=== PATIENT | female | born 1990 | race Caucasian/White ===

== ENCOUNTER → 2016-09-03 | Emergency (ER) | payer SELFPAY | END | disposition left against medical advice (07) | LOC: ED 19:36 | DX: Z53.9 Procedure and treatment not carried out, unspecified reason (principal) | CPT/HCPCS: 99281 ==

== ENCOUNTER 2017-04-20 07:00 | Emergency (ER) | payer OTHER ==
--- NOTE | 2017-04-20 07:38 | ERPHSYRPT ---
- History of Present Illness Time Seen by Provider: 04/20/17 07:24 Historian: patient Exam Limitations: no limitations Patient Subjective Stated Complaint: pt reports abd pain with cramping for one week. states she tried to have a bowel movement this morning which produced a small amount of dark stool. also reports yellow vomit. reports decreased appetite. Triage Nursing Assessment: pt is aox3, pupils perrl, resps easy and non labored , abd soft and tender with palpation, pain that is non radiating is localized to the RLQ bowel sounds present and normoactivex4, skin is pink warm and dry, pt afebrile. Physician History: The patient is a 26-year-old spontaneous 2 female with a last menstrual period of one month ago complaining of right lower quadrant abdominal pain for one week. One week ago the pain woke her up from her sleep. She states the pain is a cramping type pain. This morning the pain woke her up out of a sleep at 5 AM. She vomited some yellow bile and had a small "black" bowel movement. She denies fever or chills. She is sexually active without protection. She states she should have started her menstrual period yesterday but did not. She has not taken a home test. She's had no abdominal surgeries. Her past medical history significant for drug abuse. Timing/Duration: week(s) (1) Activities at Onset: none Quality: cramping Abdominal Pain Onset Location: RLQ Severity of Pain-Max: moderate Severity of Pain-Current: moderate Modifying Factors: Improves With: nothing Associated Symptoms: nausea, vomiting Previous symptoms: no prior history Allergies/Adverse Reactions: adhesive Allergy (Verified 04/20/17 07:20) Home Medications: No Home Meds [No Home Meds] 1 [facility] UD 06/23/14 [History] Hx Tetanus, Diphtheria Vaccination/Date Given: No Hx Influenza Vaccination/Date Given: No Hx Pneumococcal Vaccination/Date Given: No Immunizations Up to Date: Yes - Review of Systems Constitutional: No Fever, No Chills Eyes: No Symptoms Ears, Nose, & Throat: No Symptoms Respiratory: No Cough, No Dyspnea Cardiac: No Chest Pain, No Edema, No Syncope Abdominal/Gastrointestinal: Abdominal Pain, Nausea, Vomiting, Melena Genitourinary Symptoms: No Dysuria Musculoskeletal: No Back Pain, No Neck Pain Skin: No Rash Neurological: No Dizziness, No Focal Weakness, No Sensory Changes Psychological: No Symptoms Endocrine: No Symptoms Hematologic/Lymphatic: No Symptoms Immunological/Allergic: No Symptoms All Other Systems: Reviewed and Negative - Past Medical History Pertinent Past Medical History: No Neurological History: Stroke ENT History: No Pertinent History Cardiac History: No Pertinent History Respiratory History: No Pertinent History Endocrine Medical History: No Pertinent History Musculoskeletal History: No Pertinent History GI Medical History: No Pertinent History History: No Pertinent History Psycho-Social History: Depression Female Reproductive Disorders: No Pertinent History - Past Surgical History Past Surgical History: Yes Neuro Surgical History: No Pertinent History Cardiac: No Pertinent History Respiratory: No Pertinent History Gastrointestinal: No Pertinent History Genitourinary: No Pertinent History Musculoskeletal: No Pertinent History, Amputation Female Surgical History: No Pertinent History, Dilation & Curettage Other Surgical History: eye surg left. 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 "from smoking fake weed"-assoc memory trouble - Social History Smoking Status: Current every day smoker How long have you smoked: 10 Exposure to second hand smoke: Yes Drug Use: marijuana Patient Lives Alone: Yes - Female History Hx Last Menstrual Period: 03/20/17 Hx Now: Yes - Nursing Vital Signs Nursing Vital Signs: Initial Vital Signs Temperature 98.1 F 04/20/17 07:09 Pulse Rate 85 04/20/17 07:09 Respiratory Rate 20 04/20/17 07:09 Blood Pressure 119/86 04/20/17 07:09 O2 Sat by Pulse Oximetry 99 04/20/17 07:09 Pain Scale Pain Intensity 0 - Physical Exam General Appearance: mild distress Eye Exam: PERRL/EOMI, eyes nml inspection Ears, Nose, Throat Exam: normal ENT inspection, pharynx normal, moist mucous membranes Neck Exam: normal inspection, non-tender, supple, full range of motion Respiratory Exam: normal breath sounds, lungs clear, No respiratory distress Cardiovascular Exam: regular rate/rhythm, normal heart sounds Gastrointestinal/Abdomen Exam: tenderness (RLQ), guarding, rebound Pelvic Exam: normal external exam, other (small amount of blood coming from cervical os.), No adnexal tenderness, No cervical motion tenderness Rectal Exam: normal exam (nurse performs rectal exam at pt's request. Exam normal. No feces seen on glove or felt in rectum.), No black stool, No blood Back Exam: normal inspection, normal range of motion, No CVA tenderness, No vertebral tenderness Extremity Exam: normal inspection, normal range of motion, pelvis stable Neurologic Exam: alert, oriented x 3, cooperative, normal mood/affect, nml cerebellar function, sensation nml, No motor deficits Skin Exam: normal color, warm, dry SpO2 Interpretation: normal SpO2: 99 Oxygen Delivery: Room Air - CT Exams Abdomen/Pelvis CT Interpretation: Negative, Tele-radiologist Report, Other (small amount of fluid in pelvis possibly gynecological in nature per Dr Mitchell.) Ordered Tests: Active Orders 24 hr Category Date Time Status IV Insertion STAT Care 04/20/17 07:42 Active Pelvic Exam Assist STAT Care 04/20/17 09:59 Active ABDOMEN AND PELVIS W/0 CONTRAS [CT] Stat Exams 04/20/17 08:29 Taken CBC W DIFF Stat Lab 04/20/17 07:30 Completed CMP Stat Lab 04/20/17 07:30 Completed CULTURE,URINE Stat Lab 04/20/17 07:30 Received HCG QUALITATIVE,SERUM Stat Lab 04/20/17 07:30 Completed LIPASE Stat Lab 04/20/17 07:30 Completed Lactic Acid Stat Lab 04/20/17 07:50 Completed Occult Blood,Stool Other Stat Lab 04/20/17 08:10 Completed UA W/ MICROSCOPIC Stat Lab 04/20/17 07:30 Completed Urine Triage Profile Stat Lab 04/20/17 07:30 Completed Wet Prep Stat Lab 04/20/17 10:21 Completed Medication Summary Discontinued Medications Generic Name Dose Route Start Last Admin Trade Name Freq PRN Reason Stop Dose Admin Sodium Chloride 1,000 mls @ 999 mls/hr 04/20/17 07:42 04/20/17 07:55 Sodium Chloride 0.9% 1000 Ml IV 04/20/17 08:42 999 mls/hr .Q1H1M STA Administration Sodium Chloride Confirm 04/20/17 07:50 Sodium Chloride 0.9% 1000 Ml Administered 04/20/17 07:51 Dose 1,000 mls @ ud .ROUTE .STK-MED ONE Ketorolac Tromethamine 30 mg 04/20/17 10:20 04/20/17 10:29 Toradol 30 Mg Injection IV 04/20/17 10:21 30 mg STAT ONE Administration Ketorolac Tromethamine Confirm 04/20/17 10:27 Toradol 30 Mg Injection Administered 04/20/17 10:28 Dose 30 mg .ROUTE .STK-MED ONE Morphine Sulfate 4 mg 04/20/17 07:42 04/20/17 07:55 Morphine Sulfate 4 Mg Inj IV 04/20/17 07:43 4 mg STAT ONE Administration Morphine Sulfate Confirm 04/20/17 07:50 Morphine Sulfate 4 Mg Inj Administered 04/20/17 07:51 Dose 4 mg .ROUTE .STK-MED ONE Morphine Sulfate 4 mg 04/20/17 09:59 04/20/17 10:03 Morphine Sulfate 4 Mg Inj IM 04/20/17 10:00 4 mg STAT ONE Administration Morphine Sulfate Confirm 04/20/17 10:00 Morphine Sulfate 4 Mg Inj Administered 04/20/17 10:01 Dose 4 mg .ROUTE .STK-MED ONE Ondansetron HCl 4 mg 04/20/17 07:42 04/20/17 07:55 Zofran 4 Mg/2 Ml Vial IV 04/20/17 07:43 4 mg STAT ONE Administration Ondansetron HCl Confirm 04/20/17 07:50 Zofran 4 Mg/2 Ml Vial Administered 04/20/17 07:51 Dose 4 mg .ROUTE .STK-MED ONE Lab/Rad Data: Laboratory Result Diagrams 04/20/17 07:30 04/20/17 07:30 Laboratory Results 04/20/17 04/20/17 04/20/17 Range/Units 10:21 08:10 07:50 WBC (4.0-10.5) K/mm3 RBC (4.1-5.4) M/mm3 Hgb (12.0-16.0) gm/dl Hct (35-47) % MCV (78-100) fl MCH (26-32) pg MCHC (32-36) g/dl RDW (11.5-14.0) % Plt Count (150-450) K/mm3 MPV (6-9.5) fl Gran % (36.0-66.0) % Lymphocytes % (24.0-44.0) % Monocytes % (0.0-12.0) % Eosinophils % (0.00-5.0) % Basophils % (0.0-0.4) % Basophils # (0-0.4) Sodium (136-145) mEq/L Potassium (3.5-5.1) mEq/L Chloride (98-107) mEq/L Carbon Dioxide (21-32) mEq/L Anion Gap (5-15) MEQ/L BUN (9-20) mg/dL Creatinine (0.55-1.30) mg/dl Estimated GFR ML/MIN Glucose (70-110) MG/DL Lactic Acid 0.9 (0.4-2.0) Calcium (8.5-10.1) mg/dL Total Bilirubin (0.2-1.0) mg/dL AST (15-37) U/L ALT (12-78) U/L Alkaline Phosphatase (46-116) U/L Serum Total Protein (6.4-8.2) gm/dL Albumin (3.4-5.0) g/dL Lipase (73-393) U/L Serum , Qual (Negative) Ur Collection Type Urine Color (YELLOW) Urine Appearance (CLEAR) Urine pH (5-6) Ur Specific [place] (1.005-1.025) Urine Protein (Negative) Urine Ketones (NEGATIVE) Urine Blood (0-5) Casey/ul Urine Nitrite (NEGATIVE) Urine Bilirubin (NEGATIVE) Urine Urobilinogen (0-1) mg/dL Ur Leukocyte Esterase (NEGATIVE) Urine Microscopic RBC (0-2) /HPF Urine Microscopic WBC (0-5) /HPF Ur Epithelial Cells (FEW) /HPF Urine Bacteria (NEGATIVE) /HPF Urine Mucus (NEGATIVE) /HPF Urine Culture Reflexed (NO) Urine Glucose (NEGATIVE) mg/dL Stool Occult Blood NEGATIVE (Negative) WBC (Wet Prep) Few RBC (Wet Prep) Few Epi Cells (Wet Prep) Few Bacteria (Wet Prep) Many Clue Cells (Wet Prep) Few Trichomonas (Wet Prep) None Seen Budding Yeast (Wet Prp) None Seen Urine Opiates Level (NEGATIVE) Ur Methadone (NEGATIVE) Urine Barbiturates (NEGATIVE) Ur Phencyclidine (PCP) (NEGATIVE) Urine Amphetamine (NEGATIVE) U Benzodiazepine Level (NEGATIVE) Urine Cocaine (NEGATIVE) Urine Marijuana (THC) (NEGATIVE) Specimen Received 04/20/17 04/20/17 04/20/17 Range/Units 07:30 07:30 07:30 WBC 7.0 (4.0-10.5) K/mm3 RBC 3.94 L (4.1-5.4) M/mm3 Hgb 12.5 (12.0-16.0) gm/dl Hct 36.2 (35-47) % MCV 91.9 (78-100) fl MCH 31.7 (26-32) pg MCHC 34.5 (32-36) g/dl RDW 12.2 (11.5-14.0) % Plt Count 195 (150-450) K/mm3 MPV 11.2 H (6-9.5) fl Gran % 59.1 (36.0-66.0) % Lymphocytes % 30.2 (24.0-44.0) % Monocytes % 8.1 (0.0-12.0) % Eosinophils % 2.0 (0.00-5.0) % Basophils % 0.6 (0.0-0.4) % Basophils # 0.04 (0-0.4) Sodium 144 (136-145) mEq/L Potassium 3.6 (3.5-5.1) mEq/L Chloride 107 (98-107) mEq/L Carbon Dioxide 21.4 (21-32) mEq/L Anion Gap 19.1 H (5-15) MEQ/L BUN 9 (9-20) mg/dL Creatinine 0.71 (0.55-1.30) mg/dl Estimated GFR > 60 ML/MIN Glucose 106 (70-110) MG/DL Lactic Acid (0.4-2.0) Calcium 8.8 (8.5-10.1) mg/dL Total Bilirubin 0.50 (0.2-1.0) mg/dL AST 16 (15-37) U/L ALT 13 (12-78) U/L Alkaline Phosphatase 61 (46-116) U/L Serum Total Protein 7.3 (6.4-8.2) gm/dL Albumin 4.0 (3.4-5.0) g/dL Lipase 81 (73-393) U/L Serum , Qual NEGATIVE (Negative) Ur Collection Type Urine Color (YELLOW) Urine Appearance (CLEAR) Urine pH (5-6) Ur Specific [place] (1.005-1.025) Urine Protein (Negative) Urine Ketones (NEGATIVE) Urine Blood (0-5) Casey/ul Urine Nitrite (NEGATIVE) Urine Bilirubin (NEGATIVE) Urine Urobilinogen (0-1) mg/dL Ur Leukocyte Esterase (NEGATIVE) Urine Microscopic RBC (0-2) /HPF Urine Microscopic WBC (0-5) /HPF Ur Epithelial Cells (FEW) /HPF Urine Bacteria (NEGATIVE) /HPF Urine Mucus (NEGATIVE) /HPF Urine Culture Reflexed (NO) Urine Glucose (NEGATIVE) mg/dL Stool Occult Blood (Negative) WBC (Wet Prep) RBC (Wet Prep) Epi Cells (Wet Prep) Bacteria (Wet Prep) Clue Cells (Wet Prep) Trichomonas (Wet Prep) Budding Yeast (Wet Prp) Urine Opiates Level (NEGATIVE) Ur Methadone (NEGATIVE) Urine Barbiturates (NEGATIVE) Ur Phencyclidine (PCP) (NEGATIVE) Urine Amphetamine (NEGATIVE) U Benzodiazepine Level (NEGATIVE) Urine Cocaine (NEGATIVE) Urine Marijuana (THC) (NEGATIVE) Specimen Received 04/20/17 04/20/17 Range/Units 07:30 07:30 WBC (4.0-10.5) K/mm3 RBC (4.1-5.4) M/mm3 Hgb (12.0-16.0) gm/dl Hct (35-47) % MCV (78-100) fl MCH (26-32) pg MCHC (32-36) g/dl RDW (11.5-14.0) % Plt Count (150-450) K/mm3 MPV (6-9.5) fl Gran % (36.0-66.0) % Lymphocytes % (24.0-44.0) % Monocytes % (0.0-12.0) % Eosinophils % (0.00-5.0) % Basophils % (0.0-0.4) % Basophils # (0-0.4) Sodium (136-145) mEq/L Potassium (3.5-5.1) mEq/L Chloride (98-107) mEq/L Carbon Dioxide (21-32) mEq/L Anion Gap (5-15) MEQ/L BUN (9-20) mg/dL Creatinine (0.55-1.30) mg/dl Estimated GFR ML/MIN Glucose (70-110) MG/DL Lactic Acid (0.4-2.0) Calcium (8.5-10.1) mg/dL Total Bilirubin (0.2-1.0) mg/dL AST (15-37) U/L ALT (12-78) U/L Alkaline Phosphatase (46-116) U/L Serum Total Protein (6.4-8.2) gm/dL Albumin (3.4-5.0) g/dL Lipase (73-393) U/L Serum , Qual (Negative) Ur Collection Type CLEAN CATCH Urine Color YELLOW (YELLOW) Urine Appearance HAZY (CLEAR) Urine pH 5.0 (5-6) Ur Specific [place] 1.030 (1.005-1.025) Urine Protein 30 (Negative) Urine Ketones TRACE (NEGATIVE) Urine Blood 50 (0-5) Casey/ul Urine Nitrite NEGATIVE (NEGATIVE) Urine Bilirubin NEGATIVE (NEGATIVE) Urine Urobilinogen NORMAL (0-1) mg/dL Ur Leukocyte Esterase NEGATIVE (NEGATIVE) Urine Microscopic RBC 0-2 (0-2) /HPF Urine Microscopic WBC 0-2 (0-5) /HPF Ur Epithelial Cells MODERATE (FEW) /HPF Urine Bacteria MODERATE (NEGATIVE) /HPF Urine Mucus MANY (NEGATIVE) /HPF Urine Culture Reflexed YES (NO) Urine Glucose NEGATIVE (NEGATIVE) mg/dL Stool Occult Blood (Negative) WBC (Wet Prep) RBC (Wet Prep) Epi Cells (Wet Prep) Bacteria (Wet Prep) Clue Cells (Wet Prep) Trichomonas (Wet Prep) Budding Yeast (Wet Prp) Urine Opiates Level NEG. (NEGATIVE) Ur Methadone NEG. (NEGATIVE) Urine Barbiturates NEG. (NEGATIVE) Ur Phencyclidine (PCP) NEG. (NEGATIVE) Urine Amphetamine NEG. (NEGATIVE) U Benzodiazepine Level NEG. (NEGATIVE) Urine Cocaine NEG. (NEGATIVE) Urine Marijuana (THC) POS. (NEGATIVE) Specimen Received 04/20/17 0791 - Progress Progress: improved Counseled pt/family regarding: lab results, diagnosis, need for follow-up, rad results - Departure Time of Disposition: 11:03 Departure Disposition: Home Clinical Impression: Abdominal pain, Bacterial vaginosis Condition: Stable Critical Care Time: No Referrals: CARMELA CARROLL [Primary Care Provider] - Additional Instructions: You have abdominal pain of unknown cause and you have bacterial vaginosis. For the pain take naproxen 500 mg every 12 hours as needed or Tylenol No. 3 one tablet every 4-6 hours as needed. For the vaginosis take metronidazole 500 mg 2 times a day for 7 days. You were given morphine 4 mg twice a IV and Toradol 30 mg by IV in the ER. The results of your gynecological exam will be sent to Dr. Carroll. Prescriptions: Codeine Phosphate/APAP #3 [Tylenol #3 Tablet] 1 tab PO Q4-6HPRN PRN #10 tablet PRN Reason: Pain Metronidazole 500 mg PO BID #14 tablet Naproxen 500 mg PO BID PRN PRN #30 tablet.[address] JACOB Reason: Pain
[2017-04-20] MEDS ORDERED: Sodium Chloride 0.9% 1000 ML 1,000 ML IV STA (07:42)
[2017-04-20] MEDS ORDERED: Zofran 4 MG/2 ML VIAL IV ONE (07:42)
[2017-04-20] MEDS ORDERED: MORPHINE SULFATE 4 MG INJ IV ONE (07:42)
[2017-04-20] MEDS ORDERED: Zofran 4 MG/2 ML VIAL ONE (07:50)
[2017-04-20] MEDS ORDERED: Sodium Chloride 0.9% 1000 ML 1,000 ML ONE (07:50)
[2017-04-20] MEDS ORDERED: MORPHINE SULFATE 4 MG INJ ONE ×2 (07:50→10:00)
[2017-04-20 07:55] LABS: BASOPHIL % 0.6 % (0.0-0.4); Basophil (Absolute #) 0.04 (0-0.4); Eosinophil (Absolute #) 0.14 (0-0.5); Granulocyte Absolute (ANC) 4.11 (1.4-6.9); Granulocytes % 59.1 % (36.0-66.0); Hematocrit 36.2 % (35-47); Hemoglobin 12.5 gm/dl (12.0-16.0); Lymphocytes % 30.2 % (24.0-44.0); Mean Cell Volume 91.9 fl (78-100); Mean Corpuscular Hemoglobin 31.7 pg (26-32); Mean Corpuscular Hgb Concent. 34.5 g/dl (32-36); Mean Platelet Volume 11.2 fl (6-9.5); Monocyte (Absolute #) 0.56 (0.0-1.3); Monocytes % 8.1 % (0.0-12.0); Platelet Count 195 K/mm3 (150-450); Red Blood Count 3.94 M/mm3 (4.1-5.4); Red Cell Distribution Width 12.2 % (11.5-14.0)
[2017-04-20 07:57] LABS: Appearance HAZY (CLEAR); Bilirubin NEGATIVE (NEGATIVE); Blood 50 Ery/ul (0-5); Glucose NEGATIVE (NEGATIVE); Ketones TRACE (NEGATIVE); Leukocyte Esterase NEGATIVE (NEGATIVE); Nitrite NEGATIVE (NEGATIVE); Protein,Urine Dip 30 (Negative); Urobilinogen NORMAL mg/dL (0-1)
[2017-04-20 07:58] LABS: Bacteria MODERATE /HPF (NEGATIVE); Epithelial Cells MODERATE /HPF (FEW); Mucus MANY /HPF (NEGATIVE); WBC 0-2 /HPF (0-5)
[2017-04-20 07:59] LABS: Amphetamine,Urine NEG. (NEGATIVE); Barbiturate,Urine NEG. (NEGATIVE); Benzodiazepine,Urine NEG. (NEGATIVE); Cocaine,Urine NEG. (NEGATIVE); Methadone,Urine NEG. (NEGATIVE); Opiate,Urine NEG. (NEGATIVE); PCP,Urine NEG. (NEGATIVE); THC,Urine POS. (NEGATIVE)
[2017-04-20 08:11] LABS: ALKALINE PHOSPHATASE 61 U/L (46-116); ANION GAP 19.1 MEQ/L (5-15); BLOOD UREA NITROGEN 9 mg/dL (9-20); CHLORIDE 107 mEq/L (98-107); Calcium 8.8 mg/dL (8.5-10.1); Carbon Dioxide 21.4 mEq/L (21-32); Creatinine 1 0.71 mg/dl (0.55-1.30); EST GLOMERULAR FILTRATION RATE > 60 ML/MIN; Glucose 106 MG/DL (70-110); LIPASE 81 U/L (73-393); Potassium 3.6 mEq/L (3.5-5.1); SGOT/AST 16 U/L (15-37); SGPT/ALT 13 U/L (12-78); SODIUM 144 mEq/L (136-145); Total Protein 7.3 gm/dL (6.4-8.2)
[2017-04-20] MEDS ORDERED: MORPHINE SULFATE 4 MG INJ IM ONE (09:59)
[2017-04-20 10:01] VITALS: O2SAT 99
[2017-04-20] MEDS ORDERED: TORAdol 30 mg Injection IV ONE (10:20)
[2017-04-20] MEDS ORDERED: TORAdol 30 mg Injection ONE (10:27)
[2017-04-20 10:40] LABS: Clue Cells Few
[2017-04-20 10:41] LABS: Bacteria Many; Red Blood Cells Few; Trichomonas None Seen; White Blood Cells Few
[2017-04-20 11:13] VITALS: BP 98/48; PULSE 66
--- NOTE | 2017-04-20 21:38 | XRAY ---
Indication: Right lower quadrant pain. Nausea. Multiple contiguous axial images obtained through the abdomen and pelvis without contrast as ordered. Comparison: None Lung bases are clear. Heart is not enlarged. Noncontrasted stomach and bowel loops appear nonobstructed. Normal appendix. Tiny cul-de-sac fluid presumed physiologic from rupture/leaking cyst. No free air. Remaining liver, gallbladder, pancreas, spleen, adrenal glands, kidneys, ureters, bladder, uterus, and aorta appear unremarkable for noncontrast exam. Osseous structures intact. Impression: 1. Cul-de-sac fluid presumed physiologic from ruptured/leaking cyst. 2. Remaining CT abdomen/pelvis without contrast exam is negative. Comment: Preliminary interpretation was made by [facility]. No discrepancy. CTDI 9.55
== END 2017-04-20 11:37 | disposition home or self-care (01) ==
LOC: ED 07:00
DX: R10.31 Right lower quadrant pain (principal); N76.0 Acute vaginitis
CPT/HCPCS: 36000; 36415; 74176; 80053; 80307; 81000; 82272; 83605; 83690; 84703; 85025; 87086; 87210; 87490; 87590; 96360; 96374; 96375; 96376; 99284; J1885; J2270; J2405